=== PATIENT | female | born 1985 | race African-American/Black ===

== ENCOUNTER 2021-12-18 19:59 | Emergency (ER) | payer SELFPAY ==
[~2021-12-18] VITALS: Ht 162.6 cm; Wt 82.0 kg
[2021-12-18 20:03] VITALS: BP 155/85
== END 2021-12-19 01:58 | disposition left against medical advice (07) ==
LOC: ER 19:59
DX: Z53.21 Procedure and treatment not carried out due to patient leaving prior to being seen by health care provider (principal)